=== PATIENT | female | born 1995 | race American Indian/Alaskan Native ===

== ENCOUNTER 2017-06-29 07:36 | Emergency (ER) | payer MEDICAID ==
[2017-06-29 07:39] VITALS: BMI 20.7
--- NOTE | 2017-06-29 08:03 | ED PDOC ---
Arrival/HPI <Enrrique Duran - Last Filed: 06/29/17 09:26> <Juan Manuel Guerra DO - Last Filed: 06/29/17 16:55> - General Chief Complaint: Back Pain Time Seen by Provider: 06/29/17 07:38 - History of Present Illness Narrative History of Present Illness (Text): CC: Cervical pain since this morning 22yo AA F w/ no PMhx is coming to the hospital after a few hours of cervical neck pain after sleeping on her right shoulder wrong the whole night. She states she was sleeping in bed with her son, 1yr old, and normally sleeps on her left shoulder. States she heard a "pop" when she woke up, and has pain in her neck. Denies any pain down her arms, numbness, tingling, chest pain, abdominal pain, N/V/D, dysuria/freq/urg, or lower extremity pain, does not smoke , is not on OCP, not on any medications. PMhx: Denies Allergies: Denies Meds: None Surg: None FamHx: Diabetes; dad Social: denies smoking, drugs, etoh, lives at home with 1yr son, independent in all IADL and ADL walks independently (Enrrique Duran) Past Medical History - Provider Review Nursing Documentation Reviewed: Yes - Travel History Have you recently traveled outside [place] w/in the past 3 mons?: No - Past History Past History: No Previous - Infectious Disease Hx of Infectious Diseases: None - Psychiatric Hx Substance Use: No <Enrrique Duran - Last Filed: 06/29/17 09:26> Family/Social History - Physician Review Nursing Documentation Reviewed: Yes Family/Social History: No Known Family HX Smoking Status: Never Smoked Hx Alcohol Use: No Hx Substance Use: No <Enrrique Duran - Last Filed: 06/29/17 09:26> Allergies/Home Meds <Enrrique Duran - Last Filed: 06/29/17 09:26> <Juan Manuel Guerra DO - Last Filed: 06/29/17 16:55> Allergies/Adverse Reactions: Allergies No Known Allergies Allergy (Verified 06/29/17 07:38) Review of Systems - Physician Review All systems were reviewed & negative as marked: Yes - Review of Systems Constitutional: absent: Fatigue, Weight Change Eyes: absent: Vision Changes, Photophobia ENT: absent: Hearing Changes, Tinnitus Respiratory: absent: SOB, Cough Cardiovascular: absent: Chest Pain, Palpitations, Edema Gastrointestinal: absent: Abdominal Pain, Stool Changes Genitourinary Female: absent: Dysuria, Frequency Musculoskeletal: Neck Pain. absent: Arthralgias, Back Pain, Joint Swelling Skin: absent: Rash, Pruritis, Skin Lesions Neurological: absent: Headache, Dizziness Endocrine: absent: Diaphoresis, Polyuria Hemo/Lymphatic: absent: Adenopathy, Easy Bleeding Psychiatric: absent: Anxiety, Depression <Enrrique Duran Filed: 06/29/17 09:26> Physical Exam Vital Signs Reviewed: Yes Temperature: Afebrile Blood Pressure: Normal Pulse: Regular Respiratory Rate: Normal Appearance: Positive for: Well-Appearing, Non-Toxic. No: Comfortable Pain Distress: None Mental Status: Positive for: Alert and Oriented X 3 - Systems Exam Head: Present: Atraumatic, Normocephalic Pupils: Present: PERRL Extroacular Muscles: Present: EOMI Conjunctiva: Present: Normal Mouth: Present: Moist Mucous Membranes Neck: Present: Normal Range of Motion Respiratory/Chest: Present: Clear to Auscultation, Good Air Exchange. No: Respiratory Distress Cardiovascular: Present: Regular Rate and Rhythm, Normal S1, S2. No: Murmurs Abdomen: Present: Normal Bowel Sounds. No: Tenderness, Distention Back: Present: Normal Inspection. No: CVA Tenderness, Midline Tenderness, Paraspinal Tenderness, Pain with Leg Raise, Decubitus Ulcer Upper Extremity: Present: Normal Inspection, Normal ROM, NORMAL PULSES, Tenderness (right cervical muscle spasm). No: Cyanosis, Edema, Swelling, Erythema Lower Extremity: Present: Normal Inspection. No: Edema, CALF TENDERNESS Neurological: Present: GCS=15, CN II-XII Intact Skin: Present: Warm Psychiatric: Present: Alert, Oriented x 3, Normal Insight <Enrrique Duran Filed: 06/29/17 09:26> Vital Signs Temp Pulse Resp BP Pulse Ox 06/29/17 09:44 67 18 105/61 100 06/29/17 08:10 98.2 F 71 16 103/60 99 Medical Decision Making <Enrrique Duran Filed: 06/29/17 09:26> <Juan Manuel Guerra DO - Last Filed: 06/29/17 16:55> ED Course and Treatment: ddx muscle spasm X-rays thoracic cerivcal and shoulder Toradol and Baclofen Dispo and Reassess 06/29/17 09:23 Straightening of the cervical spine consistent with muscle spasm; no prelim fracture seen; no shoulder dislocation; no thoracic spine fracture, no rib fracture visualized on scans (Enrrique Duran) A 22 year old female with neck pain. In agreement with resident note, which includes further HPI details. Patient was seen and evaluated with resident, came up with plan and treatment together. (Juan Manuel Guerra DO) - RAD Interpretation Radiology Orders: 06/29/17 07:52 CERVICAL SPINE < 18YR AP/LAT [RAD] Stat SHOULDER RIGHT [RAD] Stat THORACIC SPINE [DORSAL (THORACIC) SPINE] [RAD] Stat - Medication Orders Current Medication Orders: Discontinued Medications Baclofen (Lioresal) 10 mg PO TID SANDRA Baclofen (Lioresal) 10 mg PO ONCE STA Stop: 06/29/17 07:55 Last Admin: 06/29/17 08:19 Dose: 10 mg Ketorolac Tromethamine (Toradol) 60 mg IM STAT STA Stop: 06/29/17 07:54 Last Admin: 06/29/17 08:19 Dose: 60 mg MAR Pain Assessment Document 06/29/17 08:19 MR (Rec: 06/29/17 08:20 MR [id number]) Pain Reassessment Is this a pain reassessment? No Sleep Is patient sleeping during reassessment? No Presence of Pain Presence of Pain Yes Pain Scale Used Pain Scale Used Numeric Location Left, Right or Bilateral Right Upper or Lower Upper Pain Location Body Site Back Description Description Sharp Intensity of Pain at present 9 Pain Behavior Facial Grimacing Aggravating Factors Changing Position Alleviating Factors/Management Medication Techniques Alleviating Factors Medication IM Administration Charges Document 06/29/17 08:19 (Rec: 06/29/17 08:20 MR [id number]) Injection Site MAR Injection Site Right Gluteus Refugio Charges for Administration # of IM Administrations 1 <Enrrique Duran - Last Filed: 06/29/17 09:26> - PA / TICKET MARKER / Resident Statement ANSHUL has reviewed & agrees with the documentation as recorded. ANSHUL has examined the patient and agrees with the treatment plan. - Scribe Statement The provider has reviewed the documentation as recorded by the Scribe <Juan Manuel Guerra DO - Last Filed: 06/29/17 16:55> - Scribe Statement Carol Valiente Provider Scribe Attestation: All medical record entries made by the Scribe were at my direction and personally dictated by me. I have reviewed the chart and agree that the record accurately reflects my personal performance of the history, physical exam, medical decision making, and the department course for this patient. I have also personally directed, reviewed, and agree with the discharge instructions and disposition. (Juan Manuel Guerra DO) Disposition/Present on Arrival - Present on Arrival Any Indicators Present on Arrival: No History of DVT/PE: No History of Uncontrolled Diabetes: No Urinary Catheter: No History of Decub. Ulcer: No History Surgical Site Infection Following: None - Disposition Have Diagnosis and Disposition been Completed?: Yes Disposition Time: 09:26 <Enrrique Duran - Last Filed: 06/29/17 09:26> <Juan Manuel Guerra DO - Last Filed: 06/29/17 16:55> - Disposition Diagnosis: Muscle spasm Disposition: HOME/ ROUTINE Condition: FAIR Discharge Instructions (ExitCare): Muscle Spasm (ED) Prescriptions: Baclofen [Lioresal] 10 mg PO Q8H PRN #20 tab PRN Reason: Muscle Spasm Ibuprofen [Motrin Tab] 800 mg PO Q8H PRN #20 tab PRN Reason: Pain, Mild (1-3) Forms: [facility] ([employer]), WORK NOTE
[2017-06-29 08:11] VITALS: TEMP 98.2
--- NOTE | 2017-06-29 09:31 | RAD ---
HISTORY: pain COMPARISON: No prior. FINDINGS: BONES: Alignment maintained. No fracture. DISC SPACES: Normal. SOFT TISSUES: Normal. OTHER FINDINGS: None. IMPRESSION: Normal radiographs of the thoracic spine.
--- NOTE | 2017-06-29 09:32 | RAD ---
PROCEDURE: Radiographs of the Right Shoulder HISTORY: pain COMPARISON: No prior. FINDINGS: BONES: Normal. No fracture. JOINTS: Normal. Glenohumeral and acromioclavicular joints preserved. No osteoarthritis. SOFT TISSUES: Normal. OTHER FINDINGS: None. IMPRESSION: Normal radiographs of the right shoulder.
--- NOTE | 2017-06-29 09:33 | RAD ---
PROCEDURE: HISTORY: pain COMPARISON: None TECHNIQUE: Two views frontal and lateral FINDINGS: Apparent hair extensions project over the cervical spine. No fracture or subluxation or dislocation. Vertebral bodies disc heights are maintained. A lytic lesions. IMPRESSION: No fracture or subluxation. Unremarkable exam
[2017-06-29 09:44] VITALS: BP 105/61; PULSE 67; RESP 18; O2SAT 100
== END 2017-06-29 09:53 | disposition home or self-care (01) ==
LOC: ED 07:36
DX: M62.838 Other muscle spasm (principal)
CPT/HCPCS: 72040; 72070; 73030; 96372; 99283; J1885